=== PATIENT | female | born 1980 | race Hispanic/Latino ===

== ENCOUNTER 2017-12-18 08:15 | Day surgery (SDC) | payer BC ==
[2017-12-18] MEDS ORDERED: Thiamine HCl 200 MG/2 ML VIAL ONE (08:55)
[2017-12-18] MEDS ORDERED: Ondansetron HCl/PF 4 MG/2 ML Vial ONE ×2 (08:56→10:11)
[2017-12-18 09:19] LABS: #Basophils 0.1 thou/uL (0.0-0.2); #Eosinphils 0.1 thou/uL (0.0-0.7); #Lymphocytes 1.4 thou/uL (1.20-3.40); #Monocytes 0.5 thou/uL (0.11-0.59); #Neutrophils 3.2 thou/uL (1.40-6.50); %Basophils 1.4 % (0.0-1.0); %Eosinophils 2.7 % (0.0-10.0); %Lymphocytes 26.1 % (21.0-51.0); %Monocytes 9.5 % (0.0-10.0); %Neutrophils 60.3 % (42.0-75.0); Hemoglobin 14.1 g/dL (12.0-16.0); Mean Corpuscular HGB CONC 33.4 g/dL (32.0-36.0); Mean Corpuscular Hemoglobin 31.3 pg (27.0-31.0); Mean Corpuscular Volume 93.6 fl (81.0-99.0); Mean Platelet Volume 9.6 fL (7.4-10.4); Platelet Count 173 thou/uL (130-400); RBC Distribution Width 12.1 % (11.5-14.5); Red Blood Cell (RBC) Count 4.51 mill/uL (4.20-5.40); White Blood Cell (WBC) Count 5.3 thou/uL (4.8-10.8)
[2017-12-18 09:27] LABS: Anion Gap 12 mmol/L (10-20); BUN (Urea Nitrogen) 10 mg/dL (7.0-18.7); Calc. Creatinine Clearance 0 mL/min (70-130); Calcium 9.5 mg/dL (7.8-10.44); Carbon Dioxide 26 mmol/L (22-29); Chloride 107 mmol/L (98-107); Estimated GFR-MDRD Greater than 90; Glucose 97 mg/dL (70-105); Potassium 3.3 mmol/L (3.5-5.1); Sodium 142 mmol/L (136-145)
--- NOTE | 2017-12-18 10:17 | RAD ---
TWO VIEW ABDOMEN: HISTORY: Nausea and vomiting. Gastric sleeve procedure five weeks ago. TECHNIQUE: Supine upright views obtained. FINDINGS: The bowel gas pattern is unremarkable. Scattered stool and gas are seen in the colon. No free air. Radiopaque suture in the epigastric region, consistent with the history of the gastric sleeve proced ure. Clips in the right lower quadrant may indicate a prior appendectomy. IMPRESSION: Unremarkable bowel gas pattern. POS: CARLOS ALBERTO
== END 2017-12-18 08:16 | disposition home or self-care (01) ==
LOC: SCSER/OP 08:15 → EDSTATUS 11:04
PROVIDERS: ATTEND Surgery
DX: R11.2 Nausea with vomiting, unspecified (principal)
CPT/HCPCS: 74019; 80048; 85025; J2405; J3411

== ENCOUNTER 2018-02-28 10:14 | Emergency (ER) | payer BC ==
[2018-02-28 10:54] LABS: #Basophils 0.1 thou/uL (0.0-0.2); #Eosinphils 0.2 thou/uL (0.0-0.7); #Lymphocytes 1.4 thou/uL (1.20-3.40); #Monocytes 0.6 thou/uL (0.11-0.59); #Neutrophils 4.5 thou/uL (1.40-6.50); %Basophils 1.1 % (0.0-1.0); %Eosinophils 2.6 % (0.0-10.0); %Lymphocytes 20.7 % (21.0-51.0); %Monocytes 8.5 % (0.0-10.0); %Neutrophils 67.1 % (42.0-75.0); BHCG - Serum Negative (NEGATIVE); Hemoglobin 13.8 g/dL (12.0-16.0); Mean Corpuscular HGB CONC 34.1 g/dL (32.0-36.0); Mean Corpuscular Hemoglobin 31.1 pg (27.0-31.0); Mean Corpuscular Volume 91.5 fl (81.0-99.0); Mean Platelet Volume 8.1 fL (7.4-10.4); Platelet Count 197 thou/uL (130-400); Pregs Control Background? CLEAR/WHITE (CLR/WHITE); Pregs Control Bar Appear? YES (CONTROL BAR); RBC Distribution Width 10.8 % (11.5-14.5); Red Blood Cell (RBC) Count 4.43 mill/uL (4.20-5.40); White Blood Cell (WBC) Count 6.8 thou/uL (4.8-10.8)
[2018-02-28 11:04] LABS: ALT (SGPT) 20 U/L (8-55); AST (SGOT) 19 U/L (5-34); Albumin 3.9 g/dL (3.5-5.0); Alkaline Phosphatase 88 U/L (40-150); Anion Gap 13 mmol/L (10-20); BUN (Urea Nitrogen) 11 mg/dL (7.0-18.7); Bilirubin, Total 0.8 mg/dL (0.2-1.2); CK (CPK) 27 U/L (29-168); Calc. Creatinine Clearance 0 mL/min (70-130); Calcium 9.6 mg/dL (7.8-10.44); Carbon Dioxide 23 mmol/L (22-29); Chloride 108 mmol/L (98-107); Estimated GFR-MDRD Greater than 90; Globulin 3.2 g/dL (2.4-3.5); Glucose 96 mg/dL (70-105); Lipase 14 U/L (8-78); Potassium 4.1 mmol/L (3.5-5.1); Protein, Total 7.1 g/dL (6.0-8.3); Sodium 140 mmol/L (136-145)
--- NOTE | 2018-02-28 11:42 | RAD ---
KUB AND PA CHEST: Date: 02/28/18 HISTORY: Abdominal pain. FINDINGS: Bowel gas pattern appears nonobstructive. Surgical clips in the right upper quadrant are most likely related to cholecystectomy. There is also what appears to have been a gastric bypass. No free air dem onstrated. Heart size and mediastinum are within normal limits. Lungs are clear of infiltrates. Incidental note is made of a sclerotic density in the right iliac bone, most likely a bone island. IMPRESSION: No acute findings. POS: CARLOS ALBERTO
[2018-02-28 12:01] LABS: Bilirubin Negative (Negative); Blood, Urine Negative (Negative); Clarity Turbid (Clear); Glucose, Urine (Dipstick) Negative (Negative); Leukocyte Negative (Negative); Nitrite Negative (Negative); Protein, Urine (Dipstick) Negative (Neg-Trace); pH, Urine 6.5 (5.0-9.0)
[2018-02-28] MEDS ORDERED: Nitrazine Tape 1 ROLL ONE (15:10)
== END 2018-02-28 12:20 | disposition left against medical advice (07) ==
LOC: SCSER 10:14
DX: R10.9 Unspecified abdominal pain (principal); R11.0 Nausea; R61 Generalized hyperhidrosis; L65.9 Nonscarring hair loss, unspecified; M54.5 Low back pain; N89.8 Other specified noninflammatory disorders of vagina; L29.9 Pruritus, unspecified; J45.909 Unspecified asthma, uncomplicated; F41.9 Anxiety disorder, unspecified; Z79.899 Other long term (current) drug therapy
CPT/HCPCS: 74022; 80053; 81003; 82550; 83605; 83690; 84703; 85025; 96360

== ENCOUNTER 2019-02-21 08:06 | Emergency (ER) | payer BC ==
[2019-02-21 09:00] LABS: #Basophils 0.1 thou/uL (0.0-0.2); #Eosinphils 0.1 thou/uL (0.0-0.7); #Lymphocytes 1.4 thou/uL (1.20-3.40); #Monocytes 0.5 thou/uL (0.11-0.59); #Neutrophils 3.8 thou/uL (1.40-6.50); %Basophils 1.2 % (0.0-1.0); %Lymphocytes 23.1 % (21.0-51.0); %Monocytes 8.9 % (0.0-10.0); %Neutrophils 64.8 % (42.0-75.0); Hemoglobin 13.2 g/dL (12.0-16.0); Mean Corpuscular HGB CONC 35.1 g/dL (32.0-36.0); Mean Corpuscular Hemoglobin 31.9 pg (27.0-31.0); Mean Corpuscular Volume 90.8 fL (78.0-98.0); Platelet Count 187 thou/uL (130-400); RBC Distribution Width 10.9 % (11.5-14.5); Red Blood Cell (RBC) Count 4.15 mill/uL (4.20-5.40); White Blood Cell (WBC) Count 5.9 thou/uL (4.8-10.8)
[2019-02-21] MEDS ORDERED: diphenhydrAMINE 50 MG/ML VIAL ONE ×2 (09:01→09:29)
[2019-02-21] MEDS ORDERED: Prochlorperazine 10 MG/2 ML VIAL ONE (09:02)
[2019-02-21] MEDS ORDERED: Ketorolac Tromethamine 30 MG/ML VIAL ONE (09:02)
--- NOTE | 2019-02-21 09:05 | CT ---
CT Brain WO Con History: Headache. Right arm paralysis. Comparison: None. Findings: No acute hemorrhage or infarct. No midline shift or mass effect. Ventricular size and extra -axial CSF spaces are normal. Calvarium is intact. Paranasal sinuses and mastoids are clear. Impression: No acute intracranial abnormality.
[2019-02-21 09:17] LABS: ALT (SGPT) 10 U/L (8-55); AST (SGOT) 12 U/L (5-34); Albumin 3.8 g/dL (3.5-5.0); Alkaline Phosphatase 72 U/L (40-150); Anion Gap 10 mmol/L (10-20); BUN (Urea Nitrogen) 13 mg/dL (7.0-18.7); Bilirubin, Total 0.8 mg/dL (0.2-1.2); CK (CPK) 38 U/L (29-168); Calc. Creatinine Clearance 0 mL/min (70-130); Calcium 9.4 mg/dL (7.8-10.44); Carbon Dioxide 24 mmol/L (22-29); Chloride 110 mmol/L (98-107); Estimated GFR-MDRD Greater than 90; Glucose 96 mg/dL (70-105); Potassium 3.8 mmol/L (3.5-5.1); Protein, Total 6.8 g/dL (6.0-8.3); Sodium 140 mmol/L (136-145)
== END 2019-02-21 10:48 | disposition home or self-care (01) ==
LOC: SCSER 08:06
DX: R51 Headache (principal); J45.909 Unspecified asthma, uncomplicated
CPT/HCPCS: 70450; 80053; 82550; 85025; 96365; 96375; J0780; J1200; J1885